=== PATIENT | male | born 1965 | race Caucasian/White ===

== ENCOUNTER 2018-06-23 17:51 | Inpatient (IN) | payer BC ==
[2018-06-23] MEDS ORDERED: BISACODYL 10 MG SUPP PR (19:00)
[2018-06-23] MEDS ORDERED: QUETIAPINE 25 MG TAB NGT (19:00)
[2018-06-23] MEDS ORDERED: MAGNESIUM HYDROXIDE 30ML CUP PO (19:00)
[2018-06-23 19:59] LABS: ADD UMIC YES; UR ASCORBIC ACID NEGATIVE (NEGATIVE); UR BILIRUBIN (Dip) NEGATIVE (NEGATIVE); UR BLOOD (Dip) 1+ mg/dL (NEGATIVE); UR CLARITY CLEAR (CLEAR); UR COLOR YELLOW (YELLOW); UR GLUCOSE (Dip) NEGATIVE (NEGATIVE); UR KETONES (Dip) NEGATIVE (NEGATIVE); UR LEUKOCYTE ESTERASE (Dip) NEGATIVE Leu/ul (NEGATIVE); UR NITRITE (Dip) NEGATIVE (NEGATIVE); UR RBC 5 /HPF (0-5); UR SPECIFIC GRAVITY (Dip) 1.016 (1.003-1.030); UR TOTAL PROTEIN (Dip) NEGATIVE (NEGATIVE); UR UROBILINOGEN (Dip) 2+ mg/dL (NEGATIVE); UR WBC 1 /HPF (0-5)
[2018-06-23] MEDS: TOPIRAMATE 25 MG TAB PO (21:10)
[2018-06-23] MEDS: GABAPENTIN 300 MG CAP PO (21:10)
[2018-06-23] MEDS: METHOCARBAMOL 500 MG TAB PO (21:10)
[2018-06-23] MEDS: DOCUSATE SODIUM 100 MG CAP PO (21:11)
[2018-06-23] MEDS: SENNA TAB PO (21:11)
[2018-06-23] MEDS: TAMSULOSIN (SR) 0.4 MG CAP PO (21:11)
[2018-06-23] MEDS: OXYCODONE/ACETAMINOPHEN (10/325) TAB PO (21:18)
[2018-06-23] MEDS: QUETIAPINE 25 MG TAB PO (21:42)
[2018-06-24] MEDS: OXYCODONE/ACETAMINOPHEN (10/325) TAB PO ×5 (03:57→22:13)
[2018-06-24 07:05] LABS: ADD MAN DIFF? NO
[2018-06-24 07:07] LABS: BASOPHIL # 0.1 10^3/ul (0.0-0.1); EOSINOPHILS # 0.4 10^3/ul (0.0-0.5); EOSINOPHILS % 5.5 % (0.0-7.0); HEMOGLOBIN 11.9 g/dl (14.0-18.0); LYMPHOCYTES # 2.1 10^3/ul (0.8-2.9); LYMPHOCYTES % 27.2 % (15.0-51.0); MEAN CORPUSCULAR HEMOGLOBIN 33.4 pg (29.0-33.0); MEAN CORPUSCULAR VOLUME 95.5 fl (82.0-101.0); MEAN PLATELET VOLUME 10.6 fl (7.4-10.4); MONOCYTE # 0.6 10^3/ul (0.3-0.9); MONOCYTES % 7.2 % (0.0-11.0); NEUTROPHIL # 4.5 10^3/ul (1.6-7.5); NEUTROPHILS % 58.1 % (39.0-77.0); PLATELET COUNT 184 10^3/UL (140-415); RED BLOOD COUNT 3.56 10^6/ul (4.70-6.10); RED CELL DISTRIBUTION WIDTH 12.5 % (11.5-14.5)
[2018-06-24 07:07] LABS: WHITE BLOOD COUNT 7.7 10^3/ul (4.8-10.8)
[2018-06-24 07:30] LABS: ALANINE AMINOTRANSFERASE 20 IU/L (13-69); ALBUMIN 3.7 g/dl (3.3-4.9); ALBUMIN/GLOBULIN RATIO 1.48; ALKALINE PHOSPHATASE 68 IU/L (42-121); ANION GAP 8 (5-13); ASPARTATE AMINO TRANSFERASE 24 IU/L (15-46); BILIRUBIN,INDIRECT 0.5 mg/dl (0-1.1); BILIRUBIN,TOTAL 0.5 mg/dl (0.2-1.3); BLOOD UREA NITROGEN 15 mg/dl (7-20); CALCIUM 9.2 mg/dl (8.4-10.2); CARBON DIOXIDE 30 mmol/L (21-31); CHLORIDE 101 mmol/L (97-110); CREATININE 1.01 mg/dl (0.61-1.24); Estimated GFR > 60 mL/min (>60); GLUCOSE 105 mg/dl (70-220); POTASSIUM 3.6 mmol/L (3.5-5.1); SODIUM 139 mmol/L (135-144); TOTAL PROTEIN 6.2 g/dl (6.1-8.1)
[2018-06-24] MEDS: GABAPENTIN 300 MG CAP PO ×3 (07:37→20:38)
[2018-06-24] MEDS: ACETAMINOPHEN 325 MG TAB PO (07:38)
[2018-06-24] MEDS: NICOTINE (14 MG/24 HR) PATCH TRANSDERM (08:43)
[2018-06-24] MEDS: METHOCARBAMOL 500 MG TAB PO ×4 (08:44→20:38)
[2018-06-24] MEDS: DOCUSATE SODIUM 100 MG CAP PO ×2 (08:44→20:39)
[2018-06-24] MEDS: TOPIRAMATE 25 MG TAB PO ×2 (08:44→20:38)
[2018-06-24] MEDS: POTASSIUM CHLORIDE (SR) 20 MEQ TAB PO (09:40)
[2018-06-24] MEDS: LACTULOSE 30ML CUP PO (20:39)
[2018-06-24] MEDS: TAMSULOSIN (SR) 0.4 MG CAP PO (20:39)
[2018-06-24] MEDS: SENNA TAB PO (20:39)
[2018-06-24] MEDS: QUETIAPINE 25 MG TAB PO (22:21)
[2018-06-25] MEDS: traZODone 100 MG TAB PO (00:18)
[2018-06-25] MEDS: OXYCODONE/ACETAMINOPHEN (10/325) TAB PO ×5 (03:59→21:12)
[2018-06-25] MEDS: DOCUSATE SODIUM 100 MG CAP PO ×2 (08:30→20:39)
[2018-06-25] MEDS: NICOTINE (14 MG/24 HR) PATCH TRANSDERM (08:30)
[2018-06-25] MEDS: GABAPENTIN 300 MG CAP PO ×3 (08:30→20:41)
[2018-06-25] MEDS: METHOCARBAMOL 500 MG TAB PO ×3 (08:30→20:41)
[2018-06-25] MEDS: TOPIRAMATE 25 MG TAB PO ×2 (08:30→20:41)
[2018-06-25] MEDS: TAMSULOSIN (SR) 0.4 MG CAP PO (20:41)
[2018-06-25] MEDS: SENNA TAB PO (20:41)
[2018-06-25] MEDS: QUETIAPINE 25 MG TAB PO (23:04)
[2018-06-26] MEDS: OXYCODONE/ACETAMINOPHEN (10/325) TAB PO ×3 (04:18→12:16)
[2018-06-26] MEDS: NICOTINE (14 MG/24 HR) PATCH TRANSDERM (08:29)
[2018-06-26] MEDS: TOPIRAMATE 25 MG TAB PO ×2 (08:30→21:31)
[2018-06-26] MEDS: DOCUSATE SODIUM 100 MG CAP PO ×2 (08:31→21:31)
[2018-06-26] MEDS: METHOCARBAMOL 500 MG TAB PO ×3 (08:31→21:31)
[2018-06-26] MEDS: GABAPENTIN 300 MG CAP PO ×3 (08:31→21:31)
[2018-06-26] MEDS: QUETIAPINE 25 MG TAB PO (17:08)
[2018-06-26] MEDS: SENNA TAB PO (21:31)
[2018-06-26] MEDS: TAMSULOSIN (SR) 0.4 MG CAP PO (21:31)
[2018-06-26] MEDS: traZODone 100 MG TAB PO (21:36)
[2018-06-27] MEDS: QUETIAPINE 25 MG TAB PO ×2 (07:54→21:36)
[2018-06-27] MEDS: ACETAMINOPHEN 325 MG TAB PO ×3 (07:54→16:35)
[2018-06-27] MEDS: METHOCARBAMOL 500 MG TAB PO ×3 (07:54→21:34)
[2018-06-27] MEDS: GABAPENTIN 300 MG CAP PO ×3 (08:35→21:33)
[2018-06-27] MEDS: DOCUSATE SODIUM 100 MG CAP PO ×2 (08:35→21:00)
[2018-06-27] MEDS: NICOTINE (14 MG/24 HR) PATCH TRANSDERM (08:35)
[2018-06-27] MEDS: TOPIRAMATE 25 MG TAB PO ×2 (08:35→21:34)
[2018-06-27] MEDS: PROPRANOLOL 20 MG TAB PO (12:32)
[2018-06-27] MEDS: IBUPROFEN 400 MG TAB PO ×2 (12:32→21:42)
[2018-06-27] MEDS: SENNA TAB PO (21:00)
[2018-06-27] MEDS: TAMSULOSIN (SR) 0.4 MG CAP PO (21:33)
[2018-06-28] MEDS: ACETAMINOPHEN 325 MG TAB PO (06:29)
[2018-06-28] MEDS: QUETIAPINE 25 MG TAB PO (06:32)
[2018-06-28 07:16] LABS: ADD MAN DIFF? NO
[2018-06-28 07:21] LABS: WHITE BLOOD COUNT 6.5 10^3/ul (4.8-10.8)
[2018-06-28 07:21] LABS: BASOPHIL # 0.1 10^3/ul (0.0-0.1); BASOPHILS % 1.1 % (0.0-2.0); EOSINOPHILS # 0.2 10^3/ul (0.0-0.5); EOSINOPHILS % 3.7 % (0.0-7.0); HEMATOCRIT 36.6 % (42.0-52.0); HEMOGLOBIN 13.2 g/dl (14.0-18.0); LYMPHOCYTES # 1.6 10^3/ul (0.8-2.9); LYMPHOCYTES % 24.4 % (15.0-51.0); MEAN CORPUSCULAR HGB CONC 36.1 g/dl (32.0-37.0); MEAN CORPUSCULAR VOLUME 94.3 fl (82.0-101.0); MEAN PLATELET VOLUME 9.5 fl (7.4-10.4); MONOCYTE # 0.4 10^3/ul (0.3-0.9); MONOCYTES % 6.8 % (0.0-11.0); NEUTROPHIL # 4.1 10^3/ul (1.6-7.5); NEUTROPHILS % 62.8 % (39.0-77.0); PLATELET COUNT 323 10^3/UL (140-415); RED BLOOD COUNT 3.88 10^6/ul (4.70-6.10); RED CELL DISTRIBUTION WIDTH 12.3 % (11.5-14.5)
[2018-06-28 07:49] LABS: ANION GAP 10 (5-13); BLOOD UREA NITROGEN 19 mg/dl (7-20); CALCIUM 9.6 mg/dl (8.4-10.2); CARBON DIOXIDE 25 mmol/L (21-31); CHLORIDE 109 mmol/L (97-110); CREATININE 0.96 mg/dl (0.61-1.24); Estimated GFR > 60 mL/min (>60); GLUCOSE 104 mg/dl (70-220); MAGNESIUM 2.1 mg/dl (1.7-2.5); PHOSPHORUS 3.9 mg/dl (2.5-4.9); POTASSIUM 3.9 mmol/L (3.5-5.1); SODIUM 144 mmol/L (135-144)
[2018-06-28] MEDS: NICOTINE (14 MG/24 HR) PATCH TRANSDERM (08:29)
[2018-06-28] MEDS: GABAPENTIN 300 MG CAP PO ×2 (08:29→13:00)
[2018-06-28] MEDS: METHOCARBAMOL 500 MG TAB PO ×2 (08:29→13:00)
[2018-06-28] MEDS: PROPRANOLOL 20 MG TAB PO (08:29)
[2018-06-28] MEDS: DOCUSATE SODIUM 100 MG CAP PO (08:30)
[2018-06-28] MEDS: TOPIRAMATE 25 MG TAB PO (08:30)
== END 2018-06-28 13:15 | disposition home health service (06) | DRG 560 ==
LOC: VRC 17:51
PROC: F07Z5FZ Bed Mobility Treatment using Assistive, Adaptive, Supportive or Protective Equipment (ICD-10-PCS; principal; 2018-06-24)
PROC: F07Z8FZ Transfer Training Treatment using Assistive, Adaptive, Supportive or Protective Equipment (ICD-10-PCS; 2018-06-24)
PROC: F07Z9FZ Gait Training/Functional Ambulation Treatment using Assistive, Adaptive, Supportive or Protective Equipment (ICD-10-PCS; 2018-06-24)
PROC: F08Z0FZ Bathing/Showering Techniques Treatment using Assistive, Adaptive, Supportive or Protective Equipment (ICD-10-PCS; 2018-06-24)
PROC: F08Z1FZ Dressing Techniques Treatment using Assistive, Adaptive, Supportive or Protective Equipment (ICD-10-PCS; 2018-06-24)
PROC: F08Z2FZ Grooming/Personal Hygiene Treatment using Assistive, Adaptive, Supportive or Protective Equipment (ICD-10-PCS; 2018-06-24)
DX: Z47.89 Encounter for other orthopedic aftercare (principal); F11.20 Opioid dependence, uncomplicated; G62.9 Polyneuropathy, unspecified; M54.16 Radiculopathy, lumbar region; Z98.1 Arthrodesis status; D64.9 Anemia, unspecified; N40.0 Benign prostatic hyperplasia without lower urinary tract symptoms; G47.00 Insomnia, unspecified; F39 Unspecified mood [affective] disorder; K59.00 Constipation, unspecified; F17.210 Nicotine dependence, cigarettes, uncomplicated; G43.909 Migraine, unspecified, not intractable, without status migrainosus; F91.9 Conduct disorder, unspecified
CPT/HCPCS: 80048; 80053; 81001; 83735; 84100; 85025; 87081; 87086; 97110; 97112; 97116; 97163; 97165; 97530; 97535; 97542